=== PATIENT | male | born 1965 | race Caucasian/White ===

== ENCOUNTER 2018-07-08 11:35 | Inpatient (IN) | payer OTHER ==
[2018-07-08 15:06] VITALS: BMI 21.7
--- NOTE | 2018-07-08 15:41 | HP ---
CIWA Score Nausea/Vomitin Muscle Tremors: 2 Anxiety: 2 Agitation: 2 Paroxysmal Sweats: 1-Minimal Palms Moist Orientation: 0-Oriented Tacttile Disturbances: 1-Very Mild Itch/Numbness Auditory Disturbances: 1-Very Mild Visual Disturbances: 0-None Headache: 2-Mild CIWA-Ar Total Score: 13 - Admission Criteria [facility] Guidelines: Admission for Medically Managed Detox: Requires at least one of the followin. CIWA greater than 12 2. Seizures within the past 24 hours 3. Delirium tremens within the past 24 hours 4. Hallucinations within the past 24 hours 5. Acute intervention needed for co occurring medical disorder 6. Acute intervention needed for co occurring psychiatric disorder 7. Severe withdrawal that cannot be handled at a lower level of care (continued vomiting, continued diarrhea, abnormal vital signs) requiring intravenous medication and/or fluids 8. Admission ROS S - HPI Chief Complaint: i need help to stop drinking alcohol and cocaine,heroin abused Allergies/Adverse Reactions: Allergies Allergy/AdvReac Type Severity Reaction Status Date / Time Penicillins Allergy Verified 07/08/18 14:58 History of Present Illness: this 52 years old male with alcohol,cocaine dependence,heroin abused,mmtp 250 mgs/day,last medicated today multiple admissions in detox,last [facility] 10/02 never been in rehab before history of hypertension,no medication hepatitis c treated weight loss longest period of sobriety 2 years nicotine dependence 10 cigarette/day,requesting nicotine gum plan for sober house after detox - Ebola screening Have you traveled outside of the country in the last 21 days: No Have you had contact with anyone from an Ebola affected area: No - Review of Systems Constitutional: Loss of Appetite, Malaise, Night Sweats, Changes in sleep, Unintentional Wgt. Loss EENT: reports: Tearing, Nose Congestion Respiratory: reports: No Symptoms reported Cardiac: reports: No Symptoms Reported GI: reports: Nausea, Poor Appetite : reports: No Symptoms Reported Musculoskeletal: reports: Back Pain, Muscle Pain Integumentary: reports: Dryness Neuro: reports: Headache, Tremors Endocrine: reports: No Symptoms Reported Hematology: reports: No Symptoms Reported Psychiatric: reports: No Sypmtoms Reported, Judgement Intact, Mood/Affect Appropiate, Orientated x3 Other Systems: Reviewed and Negative Patient History - Patient Medical History Hx Anemia: No Hx Asthma: Yes (childhood asthma) Hx Chronic Obstructive Pulmonary Disease (COPD): No Hx Cancer: No Hx Cardiac Disorders: No Hx Congestive Heart Failure: No Hx Hypertension: Yes (no medication) Hx Hypercholesterolemia: No Hx Pacemaker: No HX Cerebrovascular Accident: No Hx Seizures: No Hx Dementia: No Hx Diabetes: No Hx Gastrointestinal Disorders: No Hx Genitourinary Disorders: No Hx Sexually Transmitted Disorders: No Hx Renal Disease (ESRD): No Hx Thyroid Disease: No Hx Human Immunodeficiency Virus (HIV): No (last 01/02 negative ) Hx Hepatitis C: Yes (treated) Hx Depression: No Hx Suicide Attempt: No Hx Bipolar Disorder: No Hx Schizophrenia: No Other Medical History: no suicidal,no homicidal - Patient Surgical History Past Surgical History: Yes Hx Orthopedic Surgery: Yes (right hip replacement in 2005 in [facility]) Other Surgical History: abscess of left forearm in 1995 - PPD History Previous Implant?: Yes Documented Results: Negative w/o proof Implanted On Prior [facility] Admission?: No PPD to be Administered?: Yes - Smoking Cessation Smoking history: Current every day smoker Have you smoked in the past 12 months: Yes Aproximately how many cigarettes per day: 10 Cigars Per Day: 0 Hx Chewing Tobacco Use: No Initiated information on smoking cessation: Yes 'Breaking Loose' booklet given: 07/08/18 - Substance & Tx. History Hx Alcohol Use: Yes Hx Substance Use: Yes Substance Use Type: Alcohol, Cocaine Hx [facility] - Substances abused Alcohol Substance route: Oral Frequency: Daily Amount used: 20 beers( 24 oz), Age of first use: 17 Date of last use: 07/08/18 Cocaine Substance route: Smoking Frequency: Daily Amount used: $50 Age of first use: 18 Date of last use: 07/08/18 Heroin Substance route: Injection Frequency: 1-2 times per week Amount used: 4 bags Age of first use: 20 Date of last use: 07/06/18 Family Disease History - Family Disease History Family Disease History: Other: Father (dsa ,), Mother (hepatitis c.dsa, ) Admission Physical Exam [facility] - Vital Signs Vital Signs: Vital Signs - 24 hr 07/08/18 07/08/18 14:59 15:15 Temperature 98 F 98 F Pulse Rate 72 72 Respiratory 18 18 Rate Blood Pressure 131/79 131/79 - Physical General Appearance: Yes: Moderate Distress, Tremorous, Irritable, Sweating, Anxious HEENTM: Yes: Normal ENT Inspection, ANDREW, Pharynx Normal Respiratory: Yes: Lungs Clear, Normal Breath Sounds, No Respiratory Distress Neck: Yes: Within Normal Limits, Supple, Trachea in good position Breast: Yes: Within Normal Limits Cardiology: Yes: Within Normal Limits, Regular Rhythm, Regular Rate, S1, S2 Abdominal: Yes: Within Normal Limits, Normal Bowel Sounds, Non Tender, Flat, Soft Genitourinary: Yes: Within Normal Limits Back: Yes: Muscle Spasm Musculoskeletal: Yes: Back pain, Joint Stiffness, Muscle Pain Extremities: Yes: Tremors, Other (s/p right hip replcement) Neurological: Yes: counter former II-XII NML intact, Fully Oriented, Alert, Motor Strength 5/5 Integumentary: Yes: Dry, Track Jimenez Lymphatic: Yes: Within Normal Limits - Diagnostic (1) Alcohol dependence with uncomplicated withdrawal Current Visit: Yes Status: Acute (2) Cocaine dependence Current Visit: Yes Status: Acute (3) Heroin abuse Current Visit: Yes Status: Acute (4) Methadone maintenance therapy patient Current Visit: Yes Status: Acute (5) Weight loss Current Visit: Yes Status: Acute (6) History of right hip replacement Current Visit: Yes Status: Acute (7) Nicotine dependence Current Visit: Yes Status: Acute Cleared for Admission [facility] - Detox or Rehab [facility] Level of Care: Medically Managed Detox Regimen/Protocol: Librium Breathalyzer - Breathalyzer Breathalyzer: 0 Urine Drug Screen - Test Device Lot number: [id number] Expiration date: 02/15/20 - Control Is test valid?: Yes - Results Drug screen NEGATIVE: No Urine drug screen results: VIMAL-Cocaine, MET-Methamphetamine, MOP-Opiates, MTD- Methadone Inpatient Rehab Admission - Rehab Decision to Admit Inpatient rehab admission?: No
[2018-07-08] MEDS ORDERED: METHOCARBAMOL 500 MG TABLET PO PRN (15:57)
[2018-07-08] MEDS ORDERED: chlordiazePOXIDE HCL 25 MG CAPSULE PO PRN (15:57)
[2018-07-08] MEDS ORDERED: ACETAMINOPHEN 325 MG TABLET (FP) PO PRN ×2 (15:57)
[2018-07-08] MEDS ORDERED: MAG HYDROX/AL HYDROX/SIMETH 30 ML UNIT-DOSE CUP PO PRN (15:57)
[2018-07-08] MEDS ORDERED: MAGNESIUM HYDROX 2400MG/30ML ORAL SUSPENSION 30 ML CUP PO PRN (15:57)
[2018-07-08] MEDS ORDERED: IBUPROFEN 400 MG TABLET (FP) PO PRN (15:57)
[2018-07-08] MEDS ORDERED: MAGNESIUM CITRATE 300 ML BOTTLE PO PRN (15:57)
[2018-07-08] MEDS ORDERED: BISMUTH SUBSALICYLATE 524 MG/30 ML UD PO PRN (15:57)
[2018-07-08] MEDS ORDERED: hydrOXYzine PAMOATE 25 MG CAPSULE (FP) PO PRN (15:57)
[2018-07-08] MEDS ORDERED: MENTHOL/PHENOL 1 EACH UD MM PRN (15:57)
[2018-07-08] MEDS: NICOTINE 21 MG/24 HOURS TOPICAL PATCH TD SCH (17:40)
[2018-07-08] MEDS: chlordiazePOXIDE HCL 25 MG CAPSULE PO SCH (22:08)
[2018-07-08] MEDS: THIAMINE HCL 100 MG TABLET (FP) PO SCH (22:08)
[2018-07-08] MEDS: MELATONIN 5 MG TABLETS PO PRN (22:09)
[2018-07-09] MEDS: chlordiazePOXIDE HCL 25 MG CAPSULE PO SCH ×4 (05:36→22:13)
[2018-07-09] MEDS ORDERED: NICOTINE POLACRILEX 2 MG GUM BUC PRN (05:46)
[2018-07-09] MEDS: NICOTINE 21 MG/24 HOURS TOPICAL PATCH TD SCH (10:13)
[2018-07-09] MEDS: PRENATAL VITAMINS W/ FOLIC ACID TABLET (FP) PO SCH (10:13)
--- NOTE | 2018-07-09 10:32 | EKG ---
Test Reason : Blood Pressure : / mmHG Vent. Rate : 069 BPM Atrial Rate : 069 BPM P-R Int : 178 ms QRS Dur : 088 ms QT Int : 546 ms P-R-T Axes : 070 037 040 degrees QTc Int : 585 ms NORMAL SINUS RHYTHM CANNOT RULE OUT INFERIOR INFARCT , AGE UNDETERMINED PROLONGED QT ABNORMAL ECG NO PREVIOUS ECGS AVAILABLE Confirmed by NOHEMY ZAMAN MD ([id number]) on 07/09/2018 10:31:50 AM Referred By: Confirmed By:NOHEMY ZAMAN MD
[2018-07-09 12:01] LABS: HEMOGLOBIN 12.6 GM/dL (11.7-16.9); MCH 30.7 pg (25.7-33.7); MCHC 33.1 g/dl (32.0-35.9); MEAN CELL VOLUME 92.9 fl (80-96); MEAN PLT VOLUME 8.2 fl (7.5-11.1); PLATELET COUNT 164 K/MM3 (134-434); RBC 4.09 M/mm3 (4.00-5.60); WHITE BLOOD COUNT 4.3 K/mm3 (4.0-10.0)
[2018-07-09] MEDS ORDERED: METHADONE HCL 10 MG TABLET PO ONE (12:06)
[2018-07-09 12:10] LABS: ALK PHOS 74 U/L (45-117); ANION GAP 4 MMOL/L (8-16); BILIRUBIN,TOTAL 0.4 mg/dL (0.2-1); BLOOD UREA NITROGEN 14 mg/dL (7-18); CALCIUM 8.6 mg/dL (8.5-10.1); CHLORIDE 105 mmol/L (98-107); CO2 30 mmol/L (21-32); CREATININE 0.5 mg/dL (0.55-1.3); GLUCOSE,RANDOM 102 mg/dL (74-106); POTASSIUM 3.9 mmol/L (3.5-5.1); SGOT/AST 22 U/L (15-37); SGPT/ALT 28 U/L (13-61); SODIUM 139 mmol/L (136-145); TOT PROT 6.4 g/dl (6.4-8.2)
[2018-07-09] MEDS ORDERED: METHADONE PO ONE (12:16)
--- NOTE | 2018-07-09 12:30 | EKG ---
Test Reason : Blood Pressure : / mmHG Vent. Rate : 054 BPM Atrial Rate : 054 BPM P-R Int : 196 ms QRS Dur : 088 ms QT Int : 504 ms P-R-T Axes : 073 017 005 degrees QTc Int : 477 ms SINUS BRADYCARDIA OTHERWISE NORMAL ECG WHEN COMPARED WITH ECG OF 08-JUL-2018 15:22, NONSPECIFIC T WAVE ABNORMALITY NO LONGER EVIDENT IN LATERAL LEADS QT HAS SHORTENED Confirmed by AUSTYN CARR, NOHEMY ([id number]) on 07/09/2018 12:29:31 PM Referred By: Confirmed By:NOHEMY ZAMAN MD
[2018-07-09] MEDS ORDERED: METHADONE HCL 10 MG TABLET ONE (12:42)
[2018-07-09] MEDS ORDERED: METHADONE HCL 40 MG DISPERSABLE TABLET ONE (12:42)
--- NOTE | 2018-07-09 13:55 | PN ---
[facility] CIWA - CIWA Score Nausea/Vomitin-Mild Nausea/No Vomiting Muscle Tremors: 2 Anxiety: 2 Agitation: 3 Paroxysmal Sweats: 1-Minimal Palms Moist Orientation: 2-Disoriented Date<2 days Tacttile Disturbances: 0-None Auditory Disturbances: 0-None Visual Disturbances: 0-None Headache: 1-Very Mild CIWA-Ar Total Score: 12 S Progress Note (SOAP) Subjective: methadone 250 mg po daily verified aftercare [facility] Objective: 07/09/18 13:53 Vital Signs Temperature 96.9 F L 07/09/18 13:51 Pulse Rate 51 L 07/09/18 13:51 Respiratory Rate 20 07/09/18 13:51 Blood Pressure 113/66 07/09/18 13:51 O2 Sat by Pulse Oximetry (%) Laboratory Last Values WBC 4.3 K/mm3 (4.0-10.0) 07/09/18 07:30 RBC 4.09 M/mm3 (4.00-5.60) 07/09/18 07:30 Hgb 12.6 GM/dL (11.7-16.9) 07/09/18 07:30 Hct 38.0 % (35.4-49) 07/09/18 07:30 MCV 92.9 fl (80-96) 07/09/18 07:30 MCH 30.7 pg (25.7-33.7) 07/09/18 07:30 MCHC 33.1 g/dl (32.0-35.9) 07/09/18 07:30 RDW 13.0 % (11.9-15.9) 07/09/18 07:30 Plt Count 164 K/MM3 (134-434) 07/09/18 07:30 MPV 8.2 fl (7.5-11.1) 07/09/18 07:30 Sodium 139 mmol/L (136-145) 07/09/18 07:30 Potassium 3.9 mmol/L (3.5-5.1) 07/09/18 07:30 Chloride 105 mmol/L (98-107) 07/09/18 07:30 Carbon Dioxide 30 mmol/L (21-32) 07/09/18 07:30 Anion Gap 4 MMOL/L (8-16) L 07/09/18 07:30 BUN 14 mg/dL (7-18) 07/09/18 07:30 Creatinine 0.5 mg/dL (0.55-1.3) L 07/09/18 07:30 Creat Clearance w eGFR 176.01 (>60) 07/09/18 07:30 Random Glucose 102 mg/dL (74-106) 07/09/18 07:30 Calcium 8.6 mg/dL (8.5-10.1) 07/09/18 07:30 Total Bilirubin 0.4 mg/dL (0.2-1) 07/09/18 07:30 AST 22 U/L (15-37) 07/09/18 07:30 ALT 28 U/L (13-61) 07/09/18 07:30 Alkaline Phosphatase 74 U/L (45-117) 07/09/18 07:30 Total Protein 6.4 g/dl (6.4-8.2) 07/09/18 07:30 Albumin 3.0 g/dl (3.4-5.0) L 07/09/18 07:30 lab noted Assessment: 07/09/18 13:53 withdrawal sx Plan: continue detox
[2018-07-09] MEDS: THIAMINE HCL 100 MG TABLET (FP) PO SCH (22:13)
[2018-07-09] MEDS: MELATONIN 5 MG TABLETS PO PRN (22:14)
[2018-07-09 22:58] LABS: PH,URINE 6.5 (5.0-8.0); URINE APPEARANCE CLEAR; URINE BILIRUBIN 1+ (NEGATIVE); URINE COLOR DK YELLOW; URINE GLUCOSE (UA) NEGATIVE (NEGATIVE); URINE KETONE NEGATIVE (NEGATIVE); URINE LEUK ESTERASE NEGATIVE (NEGATIVE); URINE NITRITE NEGATIVE (NEGATIVE); URINE PROTEIN NEGATIVE (NEGATIVE)
[2018-07-10] MEDS ORDERED: METHADONE HCL 10 MG TABLET ONE (04:17)
[2018-07-10] MEDS ORDERED: METHADONE HCL 40 MG DISPERSABLE TABLET ONE (04:18)
[2018-07-10] MEDS: chlordiazePOXIDE HCL 25 MG CAPSULE PO SCH ×2 (05:44→10:06)
[2018-07-10] MEDS ORDERED: METHADONE PO SCH (06:00)
[2018-07-10] MEDS ORDERED: METHADONE HCL 10 MG TABLET PO SCH (06:00)
[2018-07-10] MEDS: PRENATAL VITAMINS W/ FOLIC ACID TABLET (FP) PO SCH (10:05)
[2018-07-10] MEDS: NICOTINE 21 MG/24 HOURS TOPICAL PATCH TD SCH (10:05)
--- NOTE | 2018-07-10 12:54 | PN ---
[facility] CIWA - CIWA Score Nausea/Vomitin-No Nausea/No Vomiting Muscle Tremors: 2 Anxiety: 1-Mildly Anxious Agitation: 2 Paroxysmal Sweats: 1-Minimal Palms Moist Orientation: 1-Uncertain about Date Tacttile Disturbances: 0-None Auditory Disturbances: 0-None Visual Disturbances: 0-None Headache: 1-Very Mild CIWA-Ar Total Score: 8 S Progress Note (SOAP) Subjective: feeling better wants to go [facility] counselor began referral process waiting for possible transition to next level of care today Objective: 07/10/18 12:58 Vital Signs Temperature 96 F L 07/10/18 09:10 Pulse Rate 60 07/10/18 09:10 Respiratory Rate 20 07/10/18 09:10 Blood Pressure 120/80 07/10/18 09:10 O2 Sat by Pulse Oximetry (%) Laboratory Last Values WBC 4.3 K/mm3 (4.0-10.0) 07/09/18 07:30 RBC 4.09 M/mm3 (4.00-5.60) 07/09/18 07:30 Hgb 12.6 GM/dL (11.7-16.9) 07/09/18 07:30 Hct 38.0 % (35.4-49) 07/09/18 07:30 MCV 92.9 fl (80-96) 07/09/18 07:30 MCH 30.7 pg (25.7-33.7) 07/09/18 07:30 MCHC 33.1 g/dl (32.0-35.9) 07/09/18 07:30 RDW 13.0 % (11.9-15.9) 07/09/18 07:30 Plt Count 164 K/MM3 (134-434) 07/09/18 07:30 MPV 8.2 fl (7.5-11.1) 07/09/18 07:30 Sodium 139 mmol/L (136-145) 07/09/18 07:30 Potassium 3.9 mmol/L (3.5-5.1) 07/09/18 07:30 Chloride 105 mmol/L (98-107) 07/09/18 07:30 Carbon Dioxide 30 mmol/L (21-32) 07/09/18 07:30 Anion Gap 4 MMOL/L (8-16) L 07/09/18 07:30 BUN 14 mg/dL (7-18) 07/09/18 07:30 Creatinine 0.5 mg/dL (0.55-1.3) L 07/09/18 07:30 Creat Clearance w eGFR 176.01 (>60) 07/09/18 07:30 Random Glucose 102 mg/dL (74-106) 07/09/18 07:30 Calcium 8.6 mg/dL (8.5-10.1) 07/09/18 07:30 Total Bilirubin 0.4 mg/dL (0.2-1) 07/09/18 07:30 AST 22 U/L (15-37) 07/09/18 07:30 ALT 28 U/L (13-61) 07/09/18 07:30 Alkaline Phosphatase 74 U/L (45-117) 07/09/18 07:30 Total Protein 6.4 g/dl (6.4-8.2) 07/09/18 07:30 Albumin 3.0 g/dl (3.4-5.0) L 07/09/18 07:30 Urine Color Dk yellow 07/09/18 15:00 Urine Appearance Clear 07/09/18 15:00 Urine pH 6.5 (5.0-8.0) 07/09/18 15:00 Ur Specific [place] 1.020 (1.010-1.035) 07/09/18 15:00 Urine Protein Negative (NEGATIVE) 07/09/18 15:00 Urine Glucose (UA) Negative (NEGATIVE) 07/09/18 15:00 Urine Ketones Negative (NEGATIVE) 07/09/18 15:00 Urine Blood Negative (NEGATIVE) 07/09/18 15:00 Urine Nitrite Negative (NEGATIVE) 07/09/18 15:00 Urine Bilirubin 1+ (NEGATIVE) H 07/09/18 15:00 Urine Urobilinogen 2.0 mg/dL (0.2-1.0) 07/09/18 15:00 Ur Leukocyte Esterase Negative (NEGATIVE) 07/09/18 15:00 RPR Titer Nonreactive (NONREACTIVE) 07/09/18 07:30 lab noted Assessment: 07/10/18 12:58 alcohol withdrawal sx Plan: continue detox
[2018-07-10 13:07] VITALS: BP 117/81; PULSE 95; TEMP 95.7
--- NOTE | 2018-07-10 16:00 | DS ---
[facility] Detox Discharge Summary Admission Date: 07/08/18 Discharge Date: 07/10/18 - History Present History: Alcohol Dependence Additional Comments: 52 years old male admitted on 07/08/18 for alcohol withdrawal stabilization feeling better today preferring begin alcohol rehab today alert no acute distress denies suicidal ideation aftercare [facility] Pertinent Past History: bring in medication list and lab report to aftercare appointment patient agrees to return to methadone maintenance program for medical and mental issues - Physical Exam Results Vital Signs: Vital Signs Temperature 95.7 F L 07/10/18 13:06 Pulse Rate 95 H 07/10/18 13:06 Respiratory Rate 18 07/10/18 13:06 Blood Pressure 117/81 07/10/18 13:06 O2 Sat by Pulse Oximetry (%) Pertinent Admission Physical Exam Findings: alcohol withdrawal sx Laboratory Last Values WBC 4.3 K/mm3 (4.0-10.0) 07/09/18 07:30 RBC 4.09 M/mm3 (4.00-5.60) 07/09/18 07:30 Hgb 12.6 GM/dL (11.7-16.9) 07/09/18 07:30 Hct 38.0 % (35.4-49) 07/09/18 07:30 MCV 92.9 fl (80-96) 07/09/18 07:30 MCH 30.7 pg (25.7-33.7) 07/09/18 07:30 MCHC 33.1 g/dl (32.0-35.9) 07/09/18 07:30 RDW 13.0 % (11.9-15.9) 07/09/18 07:30 Plt Count 164 K/MM3 (134-434) 07/09/18 07:30 MPV 8.2 fl (7.5-11.1) 07/09/18 07:30 Sodium 139 mmol/L (136-145) 07/09/18 07:30 Potassium 3.9 mmol/L (3.5-5.1) 07/09/18 07:30 Chloride 105 mmol/L (98-107) 07/09/18 07:30 Carbon Dioxide 30 mmol/L (21-32) 07/09/18 07:30 Anion Gap 4 MMOL/L (8-16) L 07/09/18 07:30 BUN 14 mg/dL (7-18) 07/09/18 07:30 Creatinine 0.5 mg/dL (0.55-1.3) L 07/09/18 07:30 Creat Clearance w eGFR 176.01 (>60) 07/09/18 07:30 Random Glucose 102 mg/dL (74-106) 07/09/18 07:30 Calcium 8.6 mg/dL (8.5-10.1) 07/09/18 07:30 Total Bilirubin 0.4 mg/dL (0.2-1) 07/09/18 07:30 AST 22 U/L (15-37) 07/09/18 07:30 ALT 28 U/L (13-61) 07/09/18 07:30 Alkaline Phosphatase 74 U/L (45-117) 07/09/18 07:30 Total Protein 6.4 g/dl (6.4-8.2) 07/09/18 07:30 Albumin 3.0 g/dl (3.4-5.0) L 07/09/18 07:30 Urine Color Dk yellow 07/09/18 15:00 Urine Appearance Clear 07/09/18 15:00 Urine pH 6.5 (5.0-8.0) 07/09/18 15:00 Ur Specific [place] 1.020 (1.010-1.035) 07/09/18 15:00 Urine Protein Negative (NEGATIVE) 07/09/18 15:00 Urine Glucose (UA) Negative (NEGATIVE) 07/09/18 15:00 Urine Ketones Negative (NEGATIVE) 07/09/18 15:00 Urine Blood Negative (NEGATIVE) 07/09/18 15:00 Urine Nitrite Negative (NEGATIVE) 07/09/18 15:00 Urine Bilirubin 1+ (NEGATIVE) H 07/09/18 15:00 Urine Urobilinogen 2.0 mg/dL (0.2-1.0) 07/09/18 15:00 Ur Leukocyte Esterase Negative (NEGATIVE) 07/09/18 15:00 RPR Titer Nonreactive (NONREACTIVE) 07/09/18 07:30 lab noted - Treatment Hospital Course: Detox Protocol Followed, Detoxed Safely, Responded well, Discharged Condition Good, Rehab Referral Accepted Patient has Accepted a Rehab Referral to: [facility] - Medication Discharge Medications: Ambulatory Orders NK [No Known Home Medication] 07/08/18 - Diagnosis (1) Alcohol dependence with uncomplicated withdrawal Current Visit: Yes Status: Acute (2) Methadone maintenance therapy patient Current Visit: Yes Status: Chronic (3) Nicotine dependence Current Visit: Yes Status: Acute Qualifiers: Nicotine product type: cigarettes Substance use status: in withdrawal Qualified Code(s): F17.213 - Nicotine dependence, cigarettes, with withdrawal (4) Weight loss Current Visit: Yes Status: Acute - AMA Did Patient Leave Against Medical Advice: No
[2018-07-10] MEDS ORDERED: chlordiazePOXIDE HCL 10 MG CAPSULE PO SCH (23:00)
[2018-07-10] MEDS ORDERED: chlordiazePOXIDE HCL 10 MG CAPSULE PO PRN (23:00)
[2018-07-11] MEDS ORDERED: chlordiazePOXIDE HCL 10 MG CAPSULE PO SCH (23:00)
== END 2018-07-10 16:58 | disposition home or self-care (01) | DRG 773 ==
LOC: YASAS 11:35 → Y3N 15:54
PROVIDERS: ADMIT Surgery; ATTEND Surgery
PROC: HZ2ZZZZ Detoxification Services for Substance Abuse Treatment (ICD-10-PCS; principal; 2018-07-08)
DX: F10.230 Alcohol dependence with withdrawal, uncomplicated (principal); F14.20 Cocaine dependence, uncomplicated; F11.20 Opioid dependence, uncomplicated; F17.213 Nicotine dependence, cigarettes, with withdrawal; I10 Essential (primary) hypertension; R63.4 Abnormal weight loss; Z68.21 Body mass index [BMI] 21.0-21.9, adult; Z86.19 Personal history of other infectious and parasitic diseases; Z96.641 Presence of right artificial hip joint; Z59.0 Homelessness
CPT/HCPCS: 36415; 80053; 81003; 85027; 86593; 93005; 93010